=== PATIENT | male | born 1980 ===

== ENCOUNTER 2023-01-21 05:00 | Day surgery (SDC) | payer OTHER | END 2023-01-21 09:30 | disposition home or self-care (01) | LOC: AMB-ENDOS 05:00 | PROVIDERS: ATTEND Surgery | DX: K29.60 Other gastritis without bleeding (principal); K44.9 Diaphragmatic hernia without obstruction or gangrene; R10.13 Epigastric pain; E66.01 Morbid (severe) obesity due to excess calories; Z20.822 Contact with and (suspected) exposure to COVID-19 ==